=== PATIENT | female | born 1970 | race Caucasian/White ===

== ENCOUNTER 2017-10-16 11:14 | Emergency (ER) | payer OTHER ==
[~2017-10-16] VITALS: Ht 157.5 cm; Wt 66.7 kg
== END 2017-10-16 16:03 | disposition home or self-care (01) ==
LOC: ER 11:14
DX: M79.661 Pain in right lower leg (principal)

== ENCOUNTER 2022-10-04 21:00 | Emergency (ER) | payer OTHER ==
[~2022-10-04] VITALS: Ht 157.5 cm; Wt 66.7 kg
[2022-10-04] MEDS ORDERED: ALENDRONAT70 MG/75 M PO (21:36)
[2022-10-04] MEDS ORDERED: CHILDREN'S ASPI81 MG PO (21:36)
[2022-10-04] MEDS ORDERED: [UNRECOGNIZED DRUG - OTHER] MC (21:36)
[2022-10-04] MEDS ORDERED: PREVACID30 MG PO (21:37)
[2022-10-04] MEDS ORDERED: HYOSCYAMINE0.125 M2 PO (21:37)
== END 2022-10-04 23:46 | disposition home or self-care (01) ==
LOC: ER 21:00
DX: M79.602 Pain in left arm (principal); D75.9 Disease of blood and blood-forming organs, unspecified